=== PATIENT | male | born 1960 | race African-American/Black ===

== ENCOUNTER 2017-03-09 22:27 | Inpatient (IN) | payer MEDICARE ==
[2017-03-09] MEDS ORDERED: Midazolam HCl 2 mg/2 ml Vial ONE (23:19)
--- NOTE | 2017-03-09 23:42 | CT ---
CT OF THE BRAIN WITHOUT CONTRAST 03/09/17 INDICATION: History of seizure and altered mental status. COMPARISON: Prior exam dated 02/10/15. FINDINGS: No acute infarct, hemorrhage, or hydrocephalus is present. Septum pellucidum and third ventricle are midline. There is complete opacification of the left mastoid air cells which is stable. Right mastoid air cells are clear. The paranasal sinuses are clear. The skull is intact. IMPRESSION: No acute intracranial abnormality. The examination does not appear appreciably changed from the randee rison. POS: [facility]
[2017-03-10 00:09] LABS: PTT 25.2 SEC (22.9-36.1); Prothrombin Time 15.5 SEC (12.0-14.7)
[2017-03-10 00:22] LABS: #Eosinphils 0.1 thou/uL (0.0-0.7); #Lymphocytes 1.8 thou/uL (1.20-3.40); #Monocytes 0.5 thou/uL (0.11-0.59); #Neutrophils 11.7 thou/uL (1.40-6.50); %Basophils 0.1 % (0.0-1.0); %Eosinophils 0.5 % (0.0-10.0); %Lymphocytes 12.7 % (21.0-51.0); %Monocytes 3.7 % (0.0-10.0); Hematocrit 36.1 % (42.0-52.0); Mean Platelet Volume 6.9 fL (7.4-10.4); Red Blood Cell (RBC) Count 3.58 mill/uL (4.70-6.10); White Blood Cell (WBC) Count 14.1 thou/uL (4.8-10.8)
[2017-03-10 00:28] LABS: ALT (SGPT) 22 U/L (8-55); AST (SGOT) 58 U/L (5-34); Alkaline Phosphatase 93 U/L (40-150); Anion Gap 21 mmol/L (10-20); BUN (Urea Nitrogen) 10 mg/dL (8.4-25.7); Bilirubin, Total 0.3 mg/dL (0.2-1.2); CK (CPK) 1825 U/L (30-200); Calc. Creatinine Clearance 0 mL/min (70-130); Calcium 8.2 mg/dL (7.8-10.44); Carbon Dioxide 14 mmol/L (22-29); Chloride 104 mmol/L (98-107); Estimated GFR-MDRD Greater than 90; Globulin 3.6 g/dL (2.4-3.5); Protein, Total 7.2 g/dL (6.0-8.3)
[2017-03-10 00:32] LABS: Troponin I Less than 0.010 ng/mL (< 0.028)
[2017-03-10 01:17] LABS: Bilirubin Negative (Negative); Blood, Urine Moderate (Negative); Glucose, Urine (Dipstick) 250 mg/dL (Negative); Ketone, Urine Negative (Negative); Nitrite Negative (Negative); Protein, Urine (Dipstick) Trace mg/dL (Neg-Trace); Urobilinogen 0.2 mg/dL (0.2-1.0)
[2017-03-10 01:19] LABS: Bacteria/HPF None Seen HPF (None Seen); Hyaline Casts/LPF 4-6 HYALINE CAST LPF (0-3 Hyaline); RBC/HPF 0-3 HPF (0-3)
[2017-03-10 01:31] LABS: Transitional Epithelial NONE SEEN HPF (0-3)
[2017-03-10 01:32] LABS: Renal Epithelial None Seen HPF (0-3)
[2017-03-10 01:42] LABS: Amphetamine Not Detected (NotDetected); Methadone Not Detected (NotDetected); Methamphetamine Not Detected (NotDetected)
[2017-03-10 01:43] LABS: Trichomonas/HPF None Seen HPF (None Seen)
[2017-03-10 01:49] LABS: Acetaminophen Less than 6.0 mcg/mL (10.0-30.0); Salicylate Less than 8.0 mg/dL (15.0-30.0)
[2017-03-10 01:51] LABS: Free T3 1.68 pg/mL (1.71-3.71)
[2017-03-10] MEDS ORDERED: Ondansetron ODT 4 MG TAB SL PRN (04:02)
[2017-03-10] MEDS ORDERED: Ondansetron HCl/PF 4 MG/2 ML Vial IVP PRN ×2 (04:02→07:08)
[2017-03-10] MEDS ORDERED: Sodium Chloride 0.9% 1,000 ML IV SCH (04:15)
[2017-03-10 04:37] VITALS: BMI 27.1
[2017-03-10] MEDS ORDERED: Mag-Al 1200 mg/1200 mg/30 ML UDCUP PO PRN (07:08)
[2017-03-10] MEDS ORDERED: Eucerin (Mineral Oil/Petrolatum,White) 30 gm Jar TOP PRN (07:08)
[2017-03-10] MEDS ORDERED: Lorazepam 2 MG/ML VIAL SLOW IVP PRN (07:08)
[2017-03-10] MEDS ORDERED: Zolpidem Tartrate 5 MG TAB PO PRN (07:08)
[2017-03-10] MEDS ORDERED: hydrALAZINE 20 MG/ML VIAL SLOW IVP PRN (07:08)
[2017-03-10] MEDS ORDERED: Loratadine 10 MG TAB PO PRN (07:08)
[2017-03-10] MEDS ORDERED: Senokot 8.6 MG TAB PO PRN (07:08)
[2017-03-10] MEDS ORDERED: Diabetic Tussin 200 MG/10 ML UDCUP PO PRN (07:08)
[2017-03-10] MEDS ORDERED: Chloraseptic Spray 180 ml Bottle PO PRN (07:08)
[2017-03-10] MEDS ORDERED: Sodium Chloride 0.65% Nasal 44 ML BOT EA NARE PRN (07:08)
[2017-03-10] MEDS ORDERED: Loperamide HCl 2 MG CAP PO PRN (07:08)
[2017-03-10] MEDS ORDERED: Acetaminophen 325 MG TAB PO PRN (07:08)
[2017-03-10] MEDS ORDERED: Milk Of Magnesia 30 ML UDCUP PO PRN (07:08)
[2017-03-10] MEDS ORDERED: Ondansetron ODT 4 MG TAB PO PRN (07:08)
[2017-03-10] MEDS ORDERED: Artificial Tears 18 DROP/0.9 ML EA EYE PRN (07:08)
[2017-03-10] MEDS ORDERED: HumaLOG 300 UNITS/3 ML VIAL SC PRN ×2 (07:08)
[2017-03-10] MEDS ORDERED: HYDROcodone/Acetaminophen 5/325 mg Tablet PO PRN (07:08)
[2017-03-10] MEDS ORDERED: Dextrose 50% Abboject 50 ML SYRINGE SLOW IVP PRN (07:08)
[2017-03-10] MEDS ORDERED: Dextrose 5% in Water 1,000 ML IV PRN (07:08)
--- NOTE | 2017-03-10 08:30 | RAD ---
PORTABLE CHEST: COMPARISON: None. HISTORY: Seizure at home. FINDINGS: Heart size is slightly enlarged. There is some atelectatic change seen in the lung bases. No signs of any definite confluent infiltrative process. IMPRESSION: Cardiomegaly with some bibasilar atelectatic lung change. POS: [facility]
[2017-03-10] MEDS: Benztropine 1 MG TAB PO SCH ×2 (08:40→20:36)
[2017-03-10] MEDS: Famotidine 20 MG TAB PO SCH ×2 (08:41→20:36)
[2017-03-10] MEDS: Enoxaparin Sodium 40 MG/0.4 ML SYRINGE SC SCH (08:48)
[2017-03-10] MEDS ORDERED: Multivit, Adult Inj 10 ML VIAL IV SCH (09:00)
--- NOTE | 2017-03-10 10:03 | HP ---
PRIMARY CARE PHYSICIAN: Jair Hutchinson M.D. REASON FOR ADMISSION: Seizure, altered mental status. HISTORY OF PRESENT ILLNESS: A 56-year-old -[place] male who has underlying history of schizo phrenia, hypertension, dyslipidemia, and diabetes type 2 who was brought to emergency room for new on set seizure. The patient is not in a position to provide any history because he is under effect of sedation which was given in the emergency room, but patient's sister, Iman is present at bedside who witnessed seizu re and who provided most of the history. As per patient's sister, patient never had seizure before. The patient lives with her. Patient has underlying psychiatric problem and he is following [facility]. Around 09:15 p.m. last night, patient was r esting at home and all of suddenly he was having generalized tonic clonic seizures with up rolling of eyeballs and incontinence of urine. Patient's sister called paramedics and then paramedics came to house. At that time, he was given lorazepam 2 mg and paramedics reported that he had another seizure on the route to the emergency room. Patient never had this type of problem before. He did not have any fever or chills. He was not havi ng any headache, focal motor or sensory symptoms. He did not have any nausea, vomiting, diarrhea, or UTI symptoms. He did not have any fever or chills. He is not having any alcohol abuse. In the emergency room, this patient was given Versed and after that patient was somnolent. He requir ed nasal trocar and he was requiring oxygen to maintain his saturation, but he was maintaining his ai rway. Routine blood tests showed leukocytosis, metabolic acidosis, rhabdomyolysis, and hypothyroidis m. At this point, we are admitting this patient for further evaluation and treatment. PAST MEDICAL HISTORY: History of SVT about 8 years ago and he never had any further episode and he i s not taking any medication for that, diabetes type 2, noncompliant with medical therapy, hypertensio n, and dyslipidemia. PAST PSYCHIATRIC HISTORY: Schizophrenia and depression, following [facility]. PAST SURGICAL HISTORY: Reviewed and negative. SOCIAL HISTORY: Patient lives with his sister. No history of tobacco, alcohol or illicit drug abuse . FAMILY HISTORY: No family history of epilepsy, seizure disorder or any stroke, coronary artery disea se or cancer. ALLERGIES: PENICILLIN. CURRENT HOME MEDICATIONS: Glimepiride 4 mg p.o. daily, Cogentin 1 mg p.o. b.i.d., Seroquel 300 mg p. o. at bedtime, Zocor 10 mg p.o. at bedtime. REVIEW OF SYSTEMS: All review of systems tried to review with the patient, but unable to review at t his point because patient is encephalopathic from postictal phase and sedative effect. EMERGENCY ROOM COURSE: Patient was given lorazepam 2 mg by paramedics and patient was given normal s juan alberto 1 liter and Versed in the emergency room. PHYSICAL EXAMINATION: VITAL SIGNS: On arrival, blood pressure 125/65, pulse 127, respiratory rate 18, temperature 98.4, sa turation 95% on 3 liter oxygen, and weight 90.7 kilograms. GENERAL: Patient is currently encephalopathic, no obvious acute distress. HEAD: Normocephalic, atraumatic. EYES: Pupils round and reactive to light. Extraocular muscle intact. ENT: Nasal trocar in place. Oropharynx within normal limits. No pharyngeal erythema. No exudate, no lymphadenopathy, no JVD, no meningeal signs of irritation. LUNGS: Clear to auscultation without any rhonchi or rales. CARDIAC: S1 and S2 regular without any without any murmur, no gallop. ABDOMEN: Soft, bowel sounds present, nontender, and nondistended. No organomegaly, no mass, no supr apubic tenderness. No organomegaly, no peritoneal sign. GENITOURINARY: Within normal limits. SKIN: No skin rash. HEMATOLOGICAL SYSTEM: No lymphadenopathy. MUSCULOSKELETAL: Within normal limits. NEUROLOGIC: The patient is moving all 4 limbs. Detailed neurological examination is not possible be cause of encephalopathy and postictal phase. PSYCHIATRIC: Unable to assess at this point. IMAGING AND SIGNIFICANT LABORATORY DATA: EKG based on my review, sinus tachycardia, nonspecific ST-T changes in inferior leads. CT brain based on my review, no acute intracranial process. Chest x-ray based on my review, no acute cardiopulmonary process, bibasilar atelectasis noted and mild cardiomeg mary jane. CBC: WBC 14.1, hemoglobin 11.7, MCV 101, and platelet 213. INR 1.2. BMP: Sodium 136, potass ium 3.1, chloride 104, carbon dioxide 14, anion gap 21, BUN 10, creatinine 1.0, glucose 296, calcium 8.2, and lactic acid 1.8. LFT: AST 58, ALT 22, alkaline phosphatase 93. CK 1825, albumin 3.6. BNP 24.2, free T4 0.54, free T3 is 1.68. TSH 13.56, prolactin 16.6, CK-MB 24.8, troponin I less than 0. 010. Urinalysis: WBC 4.426. Urine drug screen positive for tricyclics. Serum drug screen negative . Serum ketones 0.12. ASSESSMENT AND PLAN/IMPRESSION: 1. New onset seizure. The patient had first seizure at home and second seizure per history when he was on route to ER. This is new onset of seizure. At this point, we will obtain EEG. Neurology not cotton tipper at this point in our hospital, so unable to get consultation, but we will try to get Neurolo gy evaluation. As this patient has continuous seizure and he does not have any further seizure, we w ill avoid seizure medication. Patient's sister is advised to avoid him driving and heavy machinery a ctivity. He will need outpatient neurology followup. For further evaluation, we will do MRI brain w ith contrast. We will monitor on the stroke floor and we will provide seizure precaution and will do neuro check. At this point, does not have any focal neurological deficit. Patient does not have an y infectious etiology and does not need any lumbar puncture. If this patient gets another seizure, t hen we will start Keppra. 2. Encephalopathy, likely due to postictal phase and abnormal chemicals. At this point, we will gregg ch neurologically and we are trying to do MRI brain. We have Neurology consultation. We have EEG fo r further evaluation. We will also try to correct metabolic parameters. 3. Hypokalemia. We will replace potassium with IV fluid and we will also check magnesium and phosph orus level. 4. New onset hypothyroidism. The patient will need Synthroid 100 mcg p.o. daily and follow up with primary care physician for further adjustment of therapy. 5. Rhabdomyolysis. Patient is getting IV fluid and we will repeat CK level tomorrow, most likely re lated with either hypothyroidism or seizure activity. 6. Leukocytosis, likely related with seizure activity. We will repeat CBC tomorrow, does not suspec t any source of infection at this point. 7. Microcytic anemia. We will continue with multivitamin IV daily and upon discharge, we will consi cristy folic acid, vitamin B12 and multivitamin therapy. 8. Anion gap metabolic acidosis. We will continue with IV fluid and we will repeat BMP tomorrow. H is serum ketones and lactic acid is within normal limits suspecting from seizure activity. 9. Diabetes type 2, not controlled. We will continue with aggressive scale insulin as well as we wi ll continue patient's home medications glimepiride when patient able to take p.o. 10. Dyslipidemia. We will hold on Zocor therapy because of rhabdomyolysis and start upon discharge. 11. Schizophrenia. We will hold on Cogentin and Seroquel therapy because of altered mental status, but we will resume when the patient is more alert. 12. Deep venous thrombosis prophylaxis, Lovenox 40 mg subcutaneously daily. 13. Gastrointestinal prophylaxis, Pepcid 20 mg p.o. b.i.d. 14. Code status: The patient is FULL CODE. Patient's sister is surrogate decision maker. Disposition plan based on clinical course. We are expecting patient's stay in hospital more than 2 m idnights. Plan of care discussed with the patient's family member.
[2017-03-10] MEDS: 1/2 NS w/KCL 20 mEq 1,000 ML IV SCH ×3 (10:15→23:41)
[2017-03-10] MEDS: MULTIVITAMINS IV SCH ×4 (10:19→13:20)
[2017-03-10] MEDS: KCL IV SCH ×4 (10:19→13:20)
[2017-03-10] MEDS: 1/2 NS IV SCH ×4 (10:19→13:20)
[2017-03-11] MEDS: KCL IV SCH ×6 (00:19→15:04)
[2017-03-11] MEDS: 1/2 NS IV SCH ×6 (00:19→15:04)
[2017-03-11] MEDS: MULTIVITAMINS IV SCH ×6 (00:19→15:04)
[2017-03-11 05:38] LABS: #Eosinphils 0.1 thou/uL (0.0-0.7); #Lymphocytes 2.6 thou/uL (1.20-3.40); #Monocytes 0.5 thou/uL (0.11-0.59); #Neutrophils 4.3 thou/uL (1.40-6.50); %Basophils 0.1 % (0.0-1.0); %Eosinophils 1.2 % (0.0-10.0); %Lymphocytes 34.1 % (21.0-51.0); %Monocytes 6.9 % (0.0-10.0); Hematocrit 32.2 % (42.0-52.0); Mean Platelet Volume 6.8 fL (7.4-10.4); Red Blood Cell (RBC) Count 3.22 mill/uL (4.70-6.10); White Blood Cell (WBC) Count 7.5 thou/uL (4.8-10.8)
[2017-03-11] MEDS ORDERED: Levothyroxine Sodium 100 MCG TAB PO SCH (06:00)
[2017-03-11 06:03] LABS: ALT (SGPT) 21 U/L (8-55); AST (SGOT) 76 U/L (5-34); Alkaline Phosphatase 81 U/L (40-150); Anion Gap 12 mmol/L (10-20); BUN (Urea Nitrogen) 7 mg/dL (8.4-25.7); Bilirubin, Total 0.4 mg/dL (0.2-1.2); CK (CPK) 3450 U/L (30-200); Calc. Creatinine Clearance 126 mL/min (70-130); Calcium 8.2 mg/dL (7.8-10.44); Carbon Dioxide 22 mmol/L (22-29); Chloride 106 mmol/L (98-107); Estimated GFR-MDRD Greater than 90; Globulin 3.3 g/dL (2.4-3.5); Protein, Total 6.9 g/dL (6.0-8.3)
[2017-03-11] MEDS: 1/2 NS w/KCL 20 mEq 1,000 ML IV SCH ×2 (06:15→15:04)
[2017-03-11] MEDS: Famotidine 20 MG TAB PO SCH (09:03)
[2017-03-11] MEDS: Benztropine 1 MG TAB PO SCH (09:03)
[2017-03-11] MEDS: Enoxaparin Sodium 40 MG/0.4 ML SYRINGE SC SCH (09:03)
[2017-03-11 12:07] VITALS: BP 152/70; TEMP 97.9
--- NOTE | 2017-03-11 17:03 | DIS ---
DATE OF ADMISSION: 03/10/2017 PRIMARY DISCHARGE DIAGNOSIS: New onset seizure. SECONDARY DISCHARGE DIAGNOSES: Encephalopathy, hypokalemia, hypothyroidism. HOSPITAL COURSE: The patient was admitted secondary to having a seizure at home. His sister came in with him during the admission and reported that he had never had this before. She reports during my interview process this morning that he is at his baseline with no sequela. They are requesting disc harge to home because they are refusing EEG, MRI or any further workup at this time. I informed the patient who is coherent and his sister that their preferable option would be to stay for further work up and they state that due to payment issues and the patient being at baseline, they preferred to go home and follow up as an outpatient. CATHODE [employer]ER: Neurology. PROCEDURES: Brain CT. Brain CAT scan showed no acute intracranial abnormality. ABNORMAL LABORATORY DATA: The patient did have a white blood cell count of 14,000 upon admission. T jackie, this is now 7500. He had a creatinine kinase of 1825, today it is 3450. This was thought to b e secondary to rhabdo from the seizure activity. The patient had a TSH of 13.57 with a free T4 of 0. 54 consistent with hypothyroidism. DISCHARGE DISPOSITION: To home. DISCHARGE DIET: Heart healthy. DISCHARGE ACTIVITY: As tolerated. DISCHARGE MEDICATIONS: We will resume the patient's home medications. We will start him on a low do se of levothyroxine of 100 mcg daily. PHYSICAL EXAMINATION: HEAD: Normocephalic, atraumatic. EYES: PERRL. Extraocular muscles intact. CARDIAC: Regular rate and rhythm, no murmurs, regurgitations or gallops. LUNGS: Clear to auscultation. ABDOMEN: Nontender, nondistended. EXTREMITIES: No clubbing, cyanosis or edema. FOLLOWUP: The patient is to follow up outpatient with his PCP as well as [facility] Health clinic. They have been instructed that if the patient has any other neurological dysfunction, to return to the ER or a local neurologist as soon as possible.
== END 2017-03-11 16:05 | disposition home or self-care (01) | DRG 100 ==
LOC: ERS 22:27 → 2SE 03-10 04:00
PROVIDERS: ADMIT Family Medicine; ATTEND Family Medicine
DX: G40.409 Other generalized epilepsy and epileptic syndromes, not intractable, without status epilepticus (principal); G93.41 Metabolic encephalopathy; G92 Toxic encephalopathy; E87.2 Acidosis; M62.82 Rhabdomyolysis; E11.65 Type 2 diabetes mellitus with hyperglycemia; I10 Essential (primary) hypertension; F32.9 Major depressive disorder, single episode, unspecified; D50.9 Iron deficiency anemia, unspecified; F20.9 Schizophrenia, unspecified; E78.5 Hyperlipidemia, unspecified; E03.9 Hypothyroidism, unspecified; Z91.19 Patient's noncompliance with other medical treatment and regimen; Z88.0 Allergy status to penicillin; T42.75XA Adverse effect of unspecified antiepileptic and sedative-hypnotic drugs, initial encounter; Y92.239 Unspecified place in hospital as the place of occurrence of the external cause; E87.6 Hypokalemia
CPT/HCPCS: 36415; 36416; 51701; 70450; 71010; 80053; 80306; 80307; 81003; 81015; 82010; 82550; 82553; 83605; 83735; 83880; 84146; 84439; 84443; 84481; 84484; 85025; 85610; 85730; 86850; 86900; 86901; 87040; 93005; 96361; 96374; J1650; J2250